=== PATIENT | female | born 1995 | race Caucasian/White ===

== ENCOUNTER 2018-01-22 05:50 | Day surgery (SDC) | payer BC ==
[2018-01-22] MEDS ORDERED: PROPOFOL 20 ML (07:29)
[2018-01-22] MEDS ORDERED: MEPERIDINE 100 MG INJ (07:29)
[2018-01-22] MEDS ORDERED: CEFAZOLIN 1 GM INJ (07:29)
[2018-01-22] MEDS ORDERED: LIDOCAINE 100 MG SYRINGE (07:29)
[2018-01-22] MEDS ORDERED: METOCLOPRAMIDE 10 MG INJ (07:32)
[2018-01-22] MEDS ORDERED: ONDANSETRON 4 MG INJ (07:32)
[2018-01-22] MEDS ORDERED: HYDROmorphONE 1 MG/5 ML IV SYRINGE IV ×2 (08:48→09:00)
[2018-01-22] MEDS: HYDROmorphONE 1 MG/5 ML IV SYRINGE IV ×2 (08:50→09:14)
[2018-01-22] MEDS ORDERED: FENTAnyl 50 MCG/ML VIAL IV ×3 (09:00)
[2018-01-22] MEDS ORDERED: MEPERIDINE 25 MG INJ IV (09:00)
[2018-01-22] MEDS ORDERED: MIDAZOLAM 1 MG/ML 2 ML INJ IV (09:00)
[2018-01-22] MEDS ORDERED: OXYCODONE/ACETAMINOPHEN (5/325) TAB PO (09:00)
[2018-01-22] MEDS ORDERED: DIPHENHYDRAMINE 50 MG INJ IV (09:00)
[2018-01-22] MEDS: ONDANSETRON 4 MG INJ IV (09:27)
[2018-01-22] MEDS: OXYCODONE/ACETAMINOPHEN (5/325) TAB PO (09:27)
[2018-01-22] MEDS: METOCLOPRAMIDE 10 MG INJ IV (10:29)
== END 2018-01-22 10:49 | disposition home or self-care (01) ==
LOC: SDS 05:50
DX: N90.60 Unspecified hypertrophy of vulva (principal); E66.9 Obesity, unspecified; Z68.32 Body mass index [BMI] 32.0-32.9, adult
CPT/HCPCS: 11426; 88305

== ENCOUNTER 2018-01-27 20:24 | Emergency (ER) | payer BC ==
[2018-01-27 23:26] LABS: URINE BLOOD (Dip) POC 1+ (NEGATIVE); URINE GLUCOSE (Dip) POC Negative (NEGATIVE); URINE KETONES (Dip) POC Trace (NEGATIVE); URINE LEUKOCYTE EST (Dip) POC 1+ (NEGATIVE); URINE NITRITE (Dip) POC Negative (NEGATIVE); URINE TOTAL PROTEIN POC Negative (NEGATIVE)
== END 2018-01-27 23:45 | disposition home or self-care (01) ==
LOC: FTE 23:45
DX: N39.0 Urinary tract infection, site not specified (principal)
CPT/HCPCS: 81003; 81025; 99284